=== PATIENT | female | born 1955 | race Caucasian/White ===

== ENCOUNTER 2024-01-04 18:48 | Emergency (ER) | payer MEDICARE, OTHER, SELFPAY ==
[2024-01-04 18:48] VITALS: BMI 21.4
[2024-01-04 18:49] VITALS: BP 144/80
[2024-01-04 18:59] VITALS: BP 150/92
--- NOTE | 2024-01-04 19:44 | ED.GENMED ---
History of Present Illness
General
Chief Complaint: Fall
Source: patient and family (Niece)
Exam Limitations: none
Time Seen by Provider: 01/04/24 18:58
Travel History
Have you had any contact with someone who has COVID-19?: No
Do you have any symptoms of coronavirus? Fever > 100 degrees, chills, cough, shortness of breath, sore throat, loss of taste or smell, muscle aches, or headache?: No
History of Present Illness
History of Present Illness:
This is a 68 year old female that is brought in by family with c/o fall. Niece states that she was staying at her sisters house and she was found on the floor about 6:30am. States that they are not sure how long patient was on the floor. States
that she was unable to get up and her sister was unable to lift her. States that the ambulance made her walk and then told them that they could not go in the ambulance with her so they brought her to the hospital themselves. States that she had to
craw to get into her house. States that she never c/o pain and is c/o left knee pain. States that she was also c/o right knee pain. States that her left knee is swollen. Denies any fever, chills, chest pain, SOB (wears Oxygen at 2 liters), abd
pain, nausea, vomiting, diarrhea, headache, dizziness,urinary burning.
Past History
Past History
ED Past Medical History: Cancer (Bladder CA, Breast), COPD, Psychiatric (Schizo) and Other (PNA, )
ED Past Surgical History: Urological and Other (Bilateral Mastectomy)
Social History
Tobacco: Smoker
Alcohol: None
Drug: None
Employment: Not employed
Family History
Family History: Unable to obtain
Review of Systems
Review of Systems
All Other Systems: ROS reviewed and negative except as documented in HPI and ROS
Constitutional: Reports no symptoms; Denies fever or chills
EENT: Reports no symptoms
Respiratory: Reports cough; Denies trouble breathing
Cardiac: Reports no symptoms; Denies chest pain
ABD/GI: Reports no symptoms; Denies abdominal pain, nausea, vomiting or diarrhea
: Reports no symptoms
Musculoskeletal: Reports joint pain (Bilateral knee pain)
Skin: Reports no symptoms
Neurological: Reports no symptoms; Denies dizzy or headache
Psychiatric: Reports no symptoms
Phy Exam
General Physical Exam
General Presentation: no apparent distress
General age: appears stated age
General Skin: warm and dry
General Habitus: debilitated and elderly
General Mental: usual mental status
General Hydration: appears well hydrated
ENT Exam
ENT Exam: TM's normal, pharynx normal and neck supple
Eye Exam
Eye Exam: EOMI
Cardiovascular Exam
Cardiovascular Exam: regular rate/rhythm and normal peripheral pulses
Pulmonary Exam
Pulmonary Exam: no respiratory distress, no rales, chest non tender, no crackles, no rhonchi and other (Moist cough noted, Faint wheezing noted occasionally)
Gastrointestinal Exam
Gastrointestinal Exam: normal bowel sounds, non tender, soft, no organomegaly, no pulsatile mass and non distended
Musculoskeletal Exam
Musculoskeletal Exam: full ROM and other (Swelling of the left knee with abrasion and contusion noted on the right and lef knee. negative for tenderness )
Skin Exam
Skin Exam: warm/dry, no petechia and other (Cotusion left lower chin left lower lip appears to have been bit)
Psychiatric Exam
Psychiatric Exam: normal mood/affect (For patient according to Niece)
Course
Orders/Labs/Results
Orders:
Orders
01/04/24 18:59
Knee, Left 4 or More Views [CR Knee - Left 4 Or More View*] Urgent
Comment:
Reason For Exam: Fall, pain
01/04/24 19:28
Knee, Right 4 or More Views [CR Knee- Right 4 Or More View*] Urgent
Comment:
Reason For Exam: Fall, swelling
01/04/24 20:09
CPK [Creatine Phosphokinase] Urgent
Complete Blood Count/With Diff Urgent
Comprehensive Metabolic Panel Urgent
Abnormal Lab Results
01/04/24
20:09
WBC 13.4 H 10^3/uL
(4.8-10.8)
RDW 16.8 H %
(11.5-14.5)
Abs Immat Gran (auto) 0.1 H 10^3/uL
(0-0.05)
Absolute Neuts (auto) 11.4 H 10^3/uL
(1.4-6.5)
Absolute Lymphs (auto) 0.8 L 10^3/uL
(1.2-3.4)
Absolute Monos (auto) 1.1 H 10^3/uL
(0.1-0.6)
Neutrophils % 85.1 H %
(42.2-75.2)
Lymphocytes % 5.8 L %
(20.5-51.1)
BUN 20 H mg/dl
(7-17)
Glucose 110 H mg/dl
(70-99)
Total Protein 6.1 L g/dl
(6.3-8.2)
01/04/24 20:09
01/04/24 20:09
WBC slightly elevated. Dehydration. glucose nonfasting. Total protin slightly low. CPK normal at 123
Vital Signs
Initial and Last Documented VS:
Initial Vital Signs
Pulse Resp BP Pulse Ox
104 20 144/80 94
01/04/24 18:49 01/04/24 18:49 01/04/24 18:49 01/04/24 18:49
Last Documented Vital Signs
Pulse Resp BP Pulse Ox
104 20 150/92 96
01/04/24 18:49 01/04/24 18:49 01/04/24 18:59 01/04/24 20:15
MDM/Problems Addressed
Differential Diagnosis Includes:
Contusion, Fracture left knee,
MDM/Problems Addressed:
This is a 68 year old female that comes in with family with c/o bilateral knee pain. States that she was found on the floor by her sister and she was unable to get patient up. Patient crawled to get into her house as she was not able to walk.
Will check labs, X-ray knees
Back into see patient and family. Explained that there are no fracture or dislocation. Will get patient up and see if she can walk. Will have them use Ice for both knees. Tylenol and Ibuprofen for pain.
Was able to get patient up with walker and she could walk. Family states that this is her normal. Willl have them use Ice to the knees, Tylenol and ibuprofen for pain. Follow up with the family doctor. Return with any concerns
Chronic conditions affecting care: Psychiatric illness and Other (high pain tolerance. )
Acute Exacerbation and/or Progression of Chronic Illness: Psychiatric illness
*Radiology
Radiology exam reviewed: preliminary read by ED provider (Left knee- Negative for fracture or dislocation. ) and radiology read reviewed (right knee- No acute fracture or dislocation. Mild tricompartmental osteoarthritis. Trace suprapatellar joint
effusion. Soft tissues are grossly unremarkable. Left knee-)
*Pulse Oximetry
Patient hypoxic: no
*EKG
Interpreted by ED Provider?: NA
Rate: EKG- N/A
*Denial Resolution Specialist Interpretation
Rate: Denial Resolution Specialist- N/A
*Critical Care Note
Total Time (30-74mins, 75-104mins- exclusive of procedures): Not Applicable
ED Attending Note
-
Portions of this chart may have been created with voice recognition software.� Occasional wrong word or��sound alike� substitutions may have occurred due to the inherent limitations of voice recognition software.
Discharge Plan
Departure
Patient Disposition: Home (Routine Discharge)
Date of Disposition: 01/04/24
Time of Disposition: 21:57
Patient with high blood pressure during this ER visit?: Yes
Condition: Good
Covid-19: Not Applicable
Discharge Problem:
Acute pain of both knees, Contusion, Abrasion
Instructions: Wound Care (DC), Contusion (DC), Skin Abrasions (DC), Knee Pain (DC), BLOOD PRESSURE
Prescriptions:
No Action
albuterol sulfate 2.5 mg /3 mL (0.083 %) Solution For Nebulization
2.5 mg INHALATION R QID
clozapine 100 mg Tablet
300 mg PO DAILY
clozapine 100 mg Tablet
400 mg PO HS
therapeutic multivitamin Tablet
1 tab PO DAILY
budesonide 0.5 mg/2 mL Suspension For Nebulization
0.5 mg INHALATION R BID
docusate sodium [Col-Rite] 250 mg capsule
250 mg PO HS
ipratropium bromide 0.02 % Solution
0.5 mg INHALATION R QID
Coral Calcium 185-50-100 mg-mg-unit Capsule
1 cap PO BID
Visbiome 112.5 billion cell Capsule
1 cap PO DAILY
formoterol fumarate 20 mcg/2 mL Solution For Nebulization
20 mcg INHALATION R BID
omeprazole 20 mg Tablet,Delayed Release (Dr/Ec)
20 mg PO DAILY
prednisone 10 mg Tablet
See Rx Instructions .ROUTE .COMPLEX Qty: 30 0RF
Rx Instructions:
Take By Mouth:
40 mg daily x3 days, 30 mg daily x3 days,
20 mg daily x3 days, 10 mg daily x3 days.
Referrals:
UNKNOWN - PT DOES,NOT KNOW [Unknown Provider] -
Activity Restrictions/Additional Instructions:
As discussed, your WBC are slightly elevated. This can happen with stress. Please increase your water intake to 8-8oz glasses daily. Your X-rays are negative for any fractures or dislocation. Please use ice to the knees to help decrease your
swelling and pain. You may use Tylenol or Ibuprofen for pain. Follow up with the family doctor for recheck. IF YOU HAVE ANY OTHER CONCERNS. PLEASE RETURN TO THE EMERGENCY ROOM.
Interventions
Interventions:
*Risk Screen - Suicide Last Done: 01/04/24 20:17
*General Assessment Last Done: 01/04/24 20:11
*Neglect/Abuse Screening Last Done: 01/04/24 20:17
ED- Fall Risk Assessment Last Done: 01/04/24 20:18
*ED COVID-19 Vaccine History Last Done: 01/04/24 20:11
ED-Musculoskeletal Assessment Last Done: 01/04/24 20:11
ED- Neurological Assessment Last Done: 01/04/24 20:11
ED-Skin Assessment Last Done: 01/04/24 20:11
Discharge Date and Time
Print Language: SAO TOMEAN
[2024-01-04 20:17] LABS: % Basophils 0.3 % (0-2); % Eosinophils 0.1 % (0-6); % Immature Granulocytes 0.4 % (0-0.5); % Lymphocytes 5.8 % (20.5-51.1); % Monocytes 8.3 % (1.7-9.3); % Neutrophils 85.1 % (42.2-75.2); Absolute Immature Granulocytes 0.1 10^3/uL (0-0.05); Absolute Lymphocytes 0.8 10^3/uL (1.2-3.4); Absolute Monocytes 1.1 10^3/uL (0.1-0.6); Absolute Neutrophils 11.4 10^3/uL (1.4-6.5); Hematocrit 43.8 % (37.0-47.0); Hemoglobin 14.5 g/dL (12.0-16.0); Mean Corp Hgb Conc. 33.1 g/dL (33.0-37.0); Mean Corpuscular Volume 90.7 fL (81.0-99.0); Mean Platelet Volume 9.9 fL (7.4-10.4); Nucleated Red Blood Cells % 0 %; Platelet Count 283 10^3/uL (130-400); Red Blood Cell Count 4.83 10^6/uL (4.20-5.40); Red Cell Dist. Width 16.8 % (11.5-14.5); White Blood Cell Count 13.4 10^3/uL (4.8-10.8)
[2024-01-04 20:29] LABS: ALT (SGPT) 17 U/L (0-35); AST (SGOT) 24 U/L (14-36); Albumin 3.6 g/dl (3.5-5.0); Alkaline Phosphatase 87 U/L (38-126); Blood Urea Nitrogen 20 mg/dl (7-17); Calcium 9.6 mg/dl (8.4-10.2); Carbon Dioxide 29 mmol/L (22-30); Chloride 104 mmol/L (98-107); Creatine Phosphokinase 123 U/L (30-135); Estimated Creatinine Clearance 68 ml/min; Glucose 110 mg/dl (70-99); Potassium 3.9 mmol/L (3.5-5.1); Sodium 136 mmol/L (135-145); Total Bilirubin 0.4 mg/dl (0.2-1.3); Total Protein 6.1 g/dl (6.3-8.2); eGFR > 60.00
[2024-01-04 21:00] VITALS: BP 133/76
== END 2024-01-04 22:20 | disposition home or self-care (01) ==
LOC: EMR 18:48
PROVIDERS: Clinical Nurse Specialist Family Health; EMERGENCY PHYSICIAN Emergency Medicine; FAMILY PHYSICIAN Family Medicine
DX: S80.02XA Contusion of left knee, initial encounter (principal); M25.562 Pain in left knee; M25.561 Pain in right knee; W19.XXXA Unspecified fall, initial encounter; F17.200 Nicotine dependence, unspecified, uncomplicated
CPT/HCPCS: 99284; 73564; 80053; 82550; 85025